=== PATIENT | female | born 1995 | race Caucasian/White ===

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

== ENCOUNTER 2017-03-07 13:57 | Emergency (ER) | payer OTHER ==
--- NOTE | 2017-03-07 14:46 | PD ---
HPI Chief Complaint cramping Date Seen: Mar 07, 2017 Time Seen: 14:41 Travel History International Travel<30 Days: No Contact w/Intl Traveler<30Days: No Known Affected Area: No History of Present Illness HPI 21-year-old primigravida at 38 weeks gestation who comes today for reported cramping. She denies any leakage of fluid, bleeding, or vaginal discharge. History Past Medical History Medical History: Denies Significant Hx Obstetric History Obstetric History Primigravida followed by Dr. Rg. She is on iron for mild anemia. Past Surgical History Narrative Surgical 4 years ago she had a cardiac procedure for closure patent ductus Family History Family History: Negative Social History Alcohol Use: No Tobacco Use: No Substance Abuse: No Allergies-Medications (Allergen,Severity, Reaction): Uncoded Allergies: CHILL POWDER (Allergy, Severe, 08/17/13) Home Meds Reported Medications Azithromycin (Zithromax) 250 Mg Tab, 1000 MG PO DIRECTED for Infection, TAB 0 Refills Take 2 tabs (500 mg) on day 1 then 1 tab daily x 4 days. 09/12/16 [none] No Conflict Check 09/26/15 Review of Systems Except as stated in HPI: all other systems reviewed are Neg Physical Exam Narrative GENERAL: Well-nourished, well-developed patient. SKIN: Warm and dry. HEAD: Normocephalic and atraumatic. EYES: No scleral icterus. No injection or drainage. ENT: No nasal drainage noted. Mucous membranes pink. Airway patent. NECK: Supple, trachea midline. No JVD. CARDIOVASCULAR: Regular rate and rhythm without murmurs, gallops, or rubs. RESPIRATORY: Breath sounds equal bilaterally. No accessory muscle use. ABDOMEN/GI: Abdomen soft, non-tender, bowel sounds present, no rebound, no guarding Gravid to [-] weeks size Fundal Height: [-] GENITOURINARY: External Genitalia: intact and normal in appearance BUS glands: [-] Cervix: [-] Dilatation: [Ft-] Effacement: [-Long] Station: [-] Presentation: [Vertex-] Membranes: [intact or ruptured] Uterine Contractions: [Rare mild-] FHT's: Category: [-1] Baseline: [-] Reactive: [-] Variability: [-] Decels: [-] EXTREMITIES: No cyanosis or edema. BACK: Nontender without obvious deformity. No CVA tenderness. NEUROLOGICAL: Awake and alert. Motor and sensory grossly within normal limits. Five out of 5 muscle strength in all muscle groups. Normal speech. Data Data Vital Signs Reviewed: Yes MDM Medical Record Reviewed: Yes Narrative Course / MDM Assessment: 38 week intrauterine not in labor Plan: Follow up as scheduled for visit Diagnosis Diagnosis: Primary Impression: 38 weeks gestation of Additional Impression: Abdominal cramping Disposition: 01 DISCHARGE HOME Condition: Good Gael Chadwick MD Mar 07, 2017 14:46
[2017-03-23] MEDS ORDERED: PREN29TA PO (12:45)
== END 2017-03-07 15:00 | disposition home or self-care (01) ==
LOC: HOBED 13:57
DX: O26.893 Other specified pregnancy related conditions, third trimester (principal); R10.9 Unspecified abdominal pain; Z3A.38 38 weeks gestation of pregnancy
CPT/HCPCS: 59025

== ENCOUNTER 2017-03-20 16:34 | Emergency (ER) | payer OTHER ==
[2017-03-20 16:52] VITALS: BP 106/65; PULSE 89
[2017-03-20 16:53] VITALS: RESP 20; TEMP 98
--- NOTE | 2017-03-20 17:18 | PD ---
HPI Chief Complaint decr FM Date Seen: Mar 20, 2017 Time Seen: 17:07 Travel History International Travel<30 Days: No Contact w/Intl Traveler<30Days: No Known Affected Area: No History of Present Illness HPI 21y/o G1 @ 39.6wks. She has PNC with Dr. Rg. She presents today for evaluation of decr FM. She states that for the past 2 days her baby has been moving but not as much. She denies LOF, VB, or ctx. Weeks Gestation: 39 Para: 0 : 1 History Past Medical History Medical History: Denies Significant Hx Obstetric History Obstetric History 1. 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 09/12/16 [none] No Conflict Check 09/26/15 Review of Systems Except as stated in HPI: all other systems reviewed are Neg Physical Exam Narrative General: well developed, well nourished, no acute distress HEENT: normocephalic atraumatic, extraocular movements intact, neck supple Abdomen: soft, gravid, nontender, nondistended Uterus: fundus term Extremities: full range of motion Skin: normal coloration, no rashes, no suspicious skin lesions noted Neurologic: cranial nerves 2-12 grossly intact, normal muscle tone, normal gait Psychiatric: normal mood and affect, appropriate FHTs: 125, +accels, no decels, moderate variability, reactive [place]: rippling, not appreciated by pt Data Data Vital Signs Reviewed: Yes Orders Orders Vital Signs (Adult) .ON ADMISSION (03/20/17 16:50) ^ Labor Status (03/20/17 16:50) ^ Non Stress Test (03/20/17 16:50) Us Ob Bpp Wo Nst (03/20/17 17:06) Group B Strep: Positive MDM Plan 21y/o G1 @ 39.6wks with decr FM. -- NST reactive -- BPP/MARCEL ordered Diagnosis Diagnosis: Primary Impression: 39 weeks gestation of Additional Impression: Decreased movement affecting management of in third trimester Abel Steward MD Mar 20, 2017 17:18
[2017-03-23] MEDS ORDERED: PREN29TA PO (12:45)
== END 2017-03-20 19:27 | disposition home or self-care (01) ==
LOC: HOBED 16:34
DX: O36.8130 Decreased fetal movements, third trimester, not applicable or unspecified (principal); Z3A.39 39 weeks gestation of pregnancy
CPT/HCPCS: 59025; 76816; 76819

== ENCOUNTER 2017-03-22 13:14 | Emergency (ER) | payer OTHER, MEDICAID ==
--- NOTE | 2017-03-22 14:03 | PD ---
HPI Chief Complaint Contractions and leaking fluid Date Seen: Mar 22, 2017 Time Seen: 13:58 Travel History International Travel<30 Days: No Contact w/Intl Traveler<30Days: No Known Affected Area: No History of Present Illness HPI Patient is 21-year-old white female at [address] Rg care presents complaining of contractions and leakage of vaginal fluid. Her amnio sure is negative today. She denies any bleeding. Heart rate tracing is reactive and no regular contractions seen Weeks Gestation: 40 Para: 0 : 1 History Social History Alcohol Use: No Tobacco Use: No Substance Abuse: No Allergies-Medications (Allergen,Severity, Reaction): Uncoded Allergies: CHILL POWDER (Allergy, Severe, 08/17/13) Home Meds Reported Medications Azithromycin (Zithromax) 250 Mg Tab, 1000 MG PO DIRECTED for Infection, TAB 0 Refills Take 2 tabs (500 mg) on day 1 then 1 tab daily x 4 days. 09/12/16 [none] No Conflict Check 09/26/15 Review of Systems General / Constitutional: No: Fever, Weight Gain, Chills, Other Eyes: No: Diploplia, Blurred Vision, Visual changes, Pain, Photophobia HENT: No: Headaches, Vertigo, Lightheadedness Cardiovascular: No: Irregular Rhythm, Chest Pain or Discomfort, Palpitations, Tachycardia, Syncope, Varicosities, Edema, Cyanosis Respiratory: No: Cough, Short of Breath, Other Gastrointestinal: No: Nausea, Vomiting, Diarrhea Genitourinary: No: Decreased Urinary Output, Oliguria Musculoskeletal: No: Limited ROM, Weakness, Cramping, Edema, Pain Skin: No Rash, No Itching, No Dryness, No Lumps, No Change in Pigmentation, No Change in Nails, No Alopecia, No Lesions Neurologic: No: Weakness, Dizziness, Syncope, Focal Abnormalities, Coordination Problem, Headache, Slurred Speech, Seizures Psychiatric: No: Depression, Suicidal Ideations, Homicidal Ideation Endocrine: No: Heat Intolerance, Cold Intolerance, Polydipsia, Polyuria, Other Physical Exam Narrative GENERAL: Well-nourished, well-developed patient. SKIN: Warm and dry. HEAD: Normocephalic and atraumatic. EYES: No scleral icterus. No injection or drainage. ENT: No nasal drainage noted. Mucous membranes pink. Airway patent. NECK: Supple, trachea midline. No JVD. CARDIOVASCULAR: Regular rate and rhythm without murmurs, gallops, or rubs. RESPIRATORY: Breath sounds equal bilaterally. No accessory muscle use. BREASTS: Bilateral exam showed no masses , no retractions, no nipple discharge. ABDOMEN/GI: Abdomen soft, non-tender, bowel sounds present, no rebound, no guarding Gravid to [40-] weeks size Fundal Height: [-38] GENITOURINARY: External Genitalia: intact and normal in appearance BUS glands: [-] Cervix: [-] Dilatation: [-1] Effacement: [-70] Station: [-2] Presentation: [-vtx] Membranes: [intact amnisure neg] Uterine Contractions: [occasional -] FHT's: Category: [1-] Baseline: [133-] Reactive: [yes-] Variability: [mod-] Decels: [none-] EXTREMITIES: No cyanosis or edema. BACK: Nontender without obvious deformity. No CVA tenderness. NEUROLOGICAL: Awake and alert. Motor and sensory grossly within normal limits. Five out of 5 muscle strength in all muscle groups. Normal speech. Data Data Labs amnisure neg MDM Interpretation(s) Patient is 21-year-old white female at 40 weeks presents complaining of contractions and leakage of fluid. Her amnio sure is negative day. No bleeding. The heart rate tracing is reactive and only an occasional contractions seen. Cervix is 1/70/-2 and vertex. Plan Plan to discharge patient home to observation she will return for worsening pain , bleeding, or any further vaginal leakage of significance, otherwise she'll follow-up with her OB provider Diagnosis Diagnosis: Primary Impression: Uterine contractions during Additional Impression: No leakage of amniotic fluid into vagina Disposition: 01 DISCHARGE HOME Condition: Stable [place] Pate II, MD Mar 22, 2017 14:03
[2017-03-23] MEDS ORDERED: PREN29TA PO ×2 (12:45)
== END 2017-03-22 14:30 | disposition home or self-care (01) ==
LOC: HOBED 13:14
DX: Z03.71 Encounter for suspected problem with amniotic cavity and membrane ruled out (principal); O62.9 Abnormality of forces of labor, unspecified; Z3A.40 40 weeks gestation of pregnancy
CPT/HCPCS: 59025; 84112

== ENCOUNTER 2017-03-23 11:00 | Inpatient (IN) | payer OTHER, MEDICAID ==
[2017-03-23] VITALS (58 sets, daily range): BP systolic 95–132; BP diastolic 52–84; PULSE 74–120; RESP 16–18; TEMP 97.8
[~2017-03-23] VITALS: Ht 167.6 cm; Wt 67.0 kg
[2017-03-23] MEDS ORDERED: MINERAL OIL 10 ML VIAL TOPICAL PRN (11:15)
[2017-03-23] MEDS ORDERED: PENICILLIN G POTASSIUM INJ 5,000,000 UNITS in SODIUM CHLORIDE 0.9% INJ 100 ML IV ONE (11:15)
[2017-03-23] MEDS ORDERED: LACTATED RINGER'S 1000 ML INJ 1,000 ML IV PRN (11:15)
[2017-03-23] MEDS ORDERED: LIDOCAINE HCL 1% 50 ML VIAL INFIL PRN (11:15)
[2017-03-23] MEDS ORDERED: OXYTOCIN 30 UNITS-500ML PREMIX 500 ML IV ONE ×2 (11:15→19:45)
[2017-03-23] MEDS ORDERED: SODIUM CHLORID 0.9% 500 ML INJ 500 ML IV PRN (11:15)
[2017-03-23] MEDS ORDERED: LIDOCAINE HCL 1% 50 ML VIAL I-DERMAL PRN (11:15)
[2017-03-23] MEDS ORDERED: LACTATED RINGER'S 1000 ML INJ 1,000 ML IV SCH (11:15)
[2017-03-23] MEDS ORDERED: CITRIC ACID-SODIUM CITRATE LIQ 30 ML UDC PO SCH (11:15)
--- NOTE | 2017-03-23 11:22 | PD ---
HPI Chief Complaint ctx Date Seen: Mar 23, 2017 Time Seen: 11:17 Travel History International Travel<30 Days: No Contact w/Intl Traveler<30Days: No Known Affected Area: No History of Present Illness HPI Pt is a 21y/o G1 @ 40.2wks. She has PNC with Dr. Rg. She presents today triage with c/o painful ctx. She was seen yesterday and was 1cm dilated. She is GBS positive. Weeks Gestation: 40 Para: 0 : 1 History Past Medical History Medical History: Denies Significant Hx Obstetric History Obstetric History 1. current Past Surgical History Narrative Surgical PDA correction Family History Family History: Negative Social History Alcohol Use: No Tobacco Use: No Substance Abuse: Yes (MJ prior to ) Allergies-Medications (Allergen,Severity, Reaction): Uncoded Allergies: CHILL POWDER (Allergy, Severe, 08/17/13) Home Meds Reported Medications Azithromycin (Zithromax) 250 Mg Tab, 1000 MG PO DIRECTED for Infection, TAB 0 Refills Take 2 tabs (500 mg) on day 1 then 1 tab daily x 4 days. 09/12/16 [none] No Conflict Check 09/26/15 Review of Systems Except as stated in HPI: all other systems reviewed are Neg Physical Exam Narrative General: well developed, well nourished, no acute distress HEENT: normocephalic atraumatic, extraocular movements intact, neck supple Abdomen: soft, gravid, nontender, nondistended Uterus: fundus term Extremities: full range of motion Skin: normal coloration, no rashes, no suspicious skin lesions noted Neurologic: cranial nerves 2-12 grossly intact, normal muscle tone, normal gait Psychiatric: normal mood and affect, appropriate FHTs: 135, +accels, no decels, moderate variability, reactive Cvx: 4-5/100/BBOW Data Data Vital Signs Reviewed: Yes Orders Orders Ob (2e) Additional Admit Info (03/23/17 11:15) Vital Signs (Adult) .ON ADMISSION (03/23/17 11:15) ^ Labor Status (03/23/17 11:15) Urinalysis - C+S If Indicated (03/23/17 11:15) ^ Non Stress Test (03/23/17 11:15) Admit To Inpatient (03/23/17 ) Vital Signs (Adult) .Per protocol (03/23/17 11:15) Heart (03/23/17 11:15) Amnioinfusion (03/23/17 11:15) Urinary Catheter Management .ONCE (03/23/17 11:15) Diet Liquid (03/23/17 Lunch) Lactated Ringer's 1000 Ml Inj (Lr 1000 M (03/23/17 11:15) Lactated Ringer's 1000 Ml Inj (Lr 1000 M (03/23/17 11:15) Sodium Chlorid 0.9% 500 Ml Inj (Ns 500 M (03/23/17 11:15) Sodium Chlor 0.9% 1000 Ml Inj (Ns 1000 M (03/23/17 11:35) Lidocaine 1% Inj (50 Ml) (Xylocaine 1% I (03/23/17 11:15) Citric Acid-Sodium Citrate Liq (Bicitra (03/23/17 11:15) Fentanyl Inj (Fentanyl Inj) (03/23/17 11:15) Fentanyl Inj (Fentanyl Inj) (03/23/17 11:15) Penicillin G Potassium Inj (Pfizerpen-G (03/23/17 11:15) Penicillin G Potassium Inj (Pfizerpen-G (03/23/17 15:15) Complete Blood Count With Diff (03/23/17 11:15) Hold Clot (03/23/17 11:15) Abo/Rh Blood Type (03/23/17 11:15) Drug Screen, Random Urine (03/23/17 11:15) Resp Oxygen Non Rebreathe Mask (03/23/17 ) ^ Epidural / Intrathecal Infus (03/23/17 11:15) Oxytocin 30 Units-500ml Premix (Pitocin (03/23/17 11:15) Lidocaine 1% Inj (50 Ml) (Xylocaine 1% I (03/23/17 11:15) Light Mineral Oil (Muri-Lube Oil) (03/23/17 11:15) Inpatient Certification (03/23/17 ) Group B Strep: Positive MDM Plan 21y/o G1 @ 40.2wks in labor -- admit to L&D -- CLD, epidural/fowler PRN -- PCN for GBS positive (delay AROM until 2nd dose) -- FHTs cat 1 Dr. Rg (optical fabrication technician) notified of pt status and agrees with plan of care. He will assume care of the pt. Courtesy orders placed. Diagnosis Diagnosis: Primary Impression: 40 weeks gestation of Additional Impressions: Uterine contractions during GBS (group B streptococcus) infection Abel Steward MD Mar 23, 2017 11:22
[2017-03-23] MEDS ORDERED: SODIUM CHLOR 0.9% 1000 ML INJ 1,000 ML IV PRN (11:35)
[2017-03-23 11:57] LABS: AUTOMATED NEUTROPHIL # 9.5 TH/MM3 (1.8-7.7); BASOPHIL % 0.3 % (0.0-2.0); EOSINOPHIL % 0.2 % (0.0-4.0); HEMATOCRIT 35.9 % (35.0-46.0); HEMO FLAGS DIFF FINAL; LYMPH % 18.3 % (9.0-44.0); LYMPHOCYTE # 2.3 TH/MM3 (1.0-4.8); MEAN CELL VOLUME 85.2 FL (80.0-100.0); MEAN CORPUSCULAR HEMOGLOBIN 28.5 PG (27.0-34.0); MEAN CORPUSCULAR HGB CONC 33.5 % (32.0-36.0); NEUT % 75.2 % (16.0-70.0); PLATELET COUNT 234 TH/MM3 (150-450); RED BLOOD COUNT 4.21 MIL/MM3 (4.00-5.30); RED CELL DISTRIBUTION WIDTH 15.1 % (11.6-17.2); WHITE BLOOD COUNT 12.6 TH/MM3 (4.0-11.0)
[2017-03-23 12:10] LABS: BACTERIA, URINE RARE /hpf; BLOOD, URINE NEG (NEG); COMMENT (UR) CULTURE INDICATED; CULTURE IF INDICATED CULTURE INDICATED; GLUCOSE,URINE NEG (NEG); KETONE, URINE NEG (NEG); MUCUS URINE FEW /lpf (OCC); NITRITE,URINE NEG (NEG); PH, URINE 7.5 (5.0-8.5); SQUAMOUS EPITHELIAL CELL URINE 6 /hpf (0-5); URINE COLOR YELLOW (YELLW/STRAW)
[2017-03-23] MEDS ORDERED: PREN29TA PO ×2 (12:45)
[2017-03-23] MEDS ORDERED: OXYTOCIN 30 UNITS-500ML PREMIX 500 ML IV SCH ×2 (13:00→19:45)
[2017-03-23] MEDS ORDERED: ePHEDrine/NS 25 MG/5 ML SYRINGE ONE (13:36)
[2017-03-23] MEDS ORDERED: fentaNYL 2MCG-BUPIV 0.125% INJ 100 ML ONE (13:36)
[2017-03-23] MEDS ORDERED: PENICILLIN G POTASSIUM INJ 2,500,000 UNITS in SODIUM CHLORIDE 0.9% INJ 100 ML IV SCH (15:15)
[2017-03-23] MEDS ORDERED: MEASLES, MUMPS, RUBELLA VACCINE 0.5 ML VIAL SQ ONE (16:00)
[2017-03-23] MEDS ORDERED: DIPHTH/TETANUS/ACEL PERTUSSIS (BOOSTER) 0.5 ML VIAL/PFS IM ONE (16:00)
[2017-03-23] MEDS ORDERED: ZOLPIDEM TARTRATE 5 MG TAB PO PRN (19:45)
[2017-03-23] MEDS ORDERED: DOCUSATE SODIUM 50 MG/SENNA 8.6 MG TAB PO PRN (19:45)
[2017-03-23] MEDS ORDERED: BENZOCAINE 20% TOPICAL SPRAY 60 ML CAN TOPICAL PRN (19:45)
[2017-03-23] MEDS ORDERED: SODIUM CHLORIDE 0.9% FLUSH 10 ML FLUSH IV FLUSH PRN (19:45)
[2017-03-23] MEDS ORDERED: ALUMINUM/MAGNESIUM/SIMETH 30 ML CUP PO PRN (19:45)
[2017-03-23] MEDS ORDERED: WITCH HAZEL 50%/GLYCERIN 12.5% 40 PAD JAR TOPICAL PRN (19:45)
[2017-03-23] MEDS ORDERED: IBUPROFEN 800 MG TAB PO PRN (19:45)
[2017-03-23] MEDS ORDERED: ONDANSETRON ODT 4 MG TAB PO PRN (19:45)
[2017-03-23] MEDS ORDERED: ACETAMINOPHEN 325 MG TAB PO PRN (19:45)
[2017-03-23] MEDS ORDERED: oxyCODONE/ACETAMINOPHEN 5 MG/325 MG TAB PO PRN (19:45)
--- NOTE | 2017-03-23 19:48 | PD.OB.DELI ---
Weeks gestation: 40 Gest age assessed date: Mar 23, 2017 Pt started active labor?: Yes Medical induction of labor?: No Artificial rupture of membrane: Yes Anesthesia: Epidural Episiotomy: None Vaginal Delivery: Normal Presentation: Occiput anterior Nuchal Cord: None Delayed cord clamping (45 sec): Yes Infant: Male Delivery date: Mar 23, 2017 Delivery time: 19:10 One Minute : 9 Five Minute : 9 Weight: 8/16 Placenta: Spontaneous delivery, Intact, 3 vessel cord Laceration: Perineal laceration, 2 deg Repair: Vicryl running Estimated blood loss: 300 Additional Information cris delivery of john. small perineal laceration and right labia minora laceration. repaired with 3-0 and 5-0 vicryl cris repair, Krishna Rg MD Mar 23, 2017 19:48
[2017-03-23] MEDS: SODIUM CHLORIDE 0.9% FLUSH 10 ML FLUSH IV FLUSH SCH (21:00)
[2017-03-23] MEDS ORDERED: fentaNYL 2MCG-BUPIV 0.125% 100 ML EPIDURAL SCH (22:15)
[2017-03-23] MEDS ORDERED: DO NOT ADMINISTER ANTICOAGULANTS PRN (22:15)
[2017-03-23] MEDS ORDERED: ePHEDrine/NS 25 MG/5 ML SYRINGE IV PUSH PRN (22:15)
[2017-03-23] MEDS ORDERED: NO SYSTEM NARCOTICS PRN (22:15)
[2017-03-24 00:05] VITALS: BP 120/69; PULSE 120; RESP 12; RESP 20; TEMP 99.6
[2017-03-24 08:00] VITALS: BP 100/65; PULSE 92; RESP 18; TEMP 98.2; O2SAT 98
[2017-03-24] MEDS ORDERED: MULTIVIT/MIN/PREN/FOL AC/IRON PRENATAL TAB PO SCH (09:00)
[2017-03-24] MEDS: SODIUM CHLORIDE 0.9% FLUSH 10 ML FLUSH IV FLUSH SCH (09:52)
--- NOTE | 2017-03-24 13:40 | HHI.OB ---
Subjective Post Day: 1 Objective Vitals/I&O Vital Signs Date Time Temp Pulse Resp B/P (MAP) Pulse Ox O2 Delivery O2 Flow Rate FiO2 03/24/17 08:00 98.2 92 18 100/65 (77) 98 03/24/17 00:05 12 120/69 (86) 03/24/17 00:05 99.6 120 20 03/23/17 21:29 118 119/66 (83) 03/23/17 21:15 101 102/54 (70) 03/23/17 21:00 105 112/65 (81) 03/23/17 20:50 18 03/23/17 20:45 106 109/60 (76) 03/23/17 20:35 16 03/23/17 20:30 102 111/65 (80) 03/23/17 20:20 16 03/23/17 20:15 111 105/62 (76) 03/23/17 20:05 18 03/23/17 20:00 111 109/66 (80) 03/23/17 19:50 18 03/23/17 19:45 16 03/23/17 19:45 109 115/62 (79) 03/23/17 19:30 109 114/52 (72) 03/23/17 19:15 113 113/69 (84) 03/23/17 19:00 120 110/82 (91) 03/23/17 18:45 110 121/62 (81) 03/23/17 18:30 109 118/62 (80) 03/23/17 18:15 18 03/23/17 18:15 105 119/69 (86) 03/23/17 18:00 104 116/72 (87) 03/23/17 17:45 106 108/56 (73) 03/23/17 17:30 116 104/59 (74) 03/23/17 17:30 97.8 03/23/17 17:24 17 03/23/17 17:15 103 100/59 (73) 03/23/17 17:01 108 103/52 (69) 03/23/17 17:00 18 03/23/17 16:45 103 113/80 (91) 03/23/17 16:30 81 95/74 (81) 03/23/17 16:15 80 107/73 (84) 03/23/17 16:01 92 113/72 (86) 1817 15:45 90 112/65 (81) 1817 15:30 85 103/77 (86) 1817 15:24 101 104/67 (79) 1817 15:20 91 18/17 15:15 94 17 15:15 94 17 15:10 86 106/54 (71) 17 15:10 84 1817 15:05 84 106/57 (73) 03/23/17 15:05 89 03/23/17 15:00 85 17 15:00 81 103/60 (74) 03/23/17 14:55 84 100/56 (71) 03/23/17 14:55 79 17 14:50 85 103/64 (77) 03/23/17 14:50 95 17 14:45 92 101/61 (74) 17 14:45 81 17 14:40 81 17 14:40 85 106/57 (73) 17 14:35 96 109/54 (72) 17 14:35 74 1817 14:30 86 99/59 (72) 17 14:30 95 18/17 14:25 92 101/61 (74) 17 14:25 89 17 14:20 95 17 14:20 94 109/61 (77) 17 14:15 97 1817 14:15 94 102/55 (71) 03/23/17 14:10 86 106/60 (75) 17 14:10 91 1817 14:05 97 109/57 (74) 17 14:05 98 1817 14:04 95 104/60 (75) 17 14:00 92 17 14:00 94 106/60 (75) 17 13:55 86 17 13:55 96 118/61 (80) 17 13:52 91 118/69 (85) 03/23/17 13:50 94 03/23/17 13:45 99 Objective Remarks GENERAL: Well-nourished, well-developed patient. CARDIOVASCULAR: Regular rate and rhythm without murmurs, gallops, or rubs. RESPIRATORY: Breath sounds equal bilaterally. No accessory muscle use. ABDOMEN/GI: Abdomen soft, non-tender. Fundus: Firm, non-tender at umbilicus. GENITOURINARY: Light to moderate bleeding. EXTREMITIES: No cyanosis or edema, non-tender, without signs of DVT. Medications and IVs Current Medications Medications (Trade) Dose Ordered Sig/[place] Route Start Time Stop Time Status Last Admin (NS Flush) 2 ml BID IV FLUSH 03/23/17 21:00 03/24/17 09:52 (NS Flush) 2 ml UNSCH PRN IV FLUSH 03/23/17 19:45 (Tylenol) 650 mg Q4H PRN PO 03/23/17 19:45 (Motrin) 800 mg Q8H PRN PO 03/23/17 19:45 (Percocet 5-325 Mg) 1 tab Q4H PRN PO 03/23/17 19:45 (Americaine 20% Top Spr) 1 spray Q4H PRN TOPICAL 03/23/17 19:45 03/24/17 00:30 (Tucks Pads) 1 applic QID PRN TOPICAL 03/23/17 19:45 03/24/17 00:30 (Emily-Colace) 2 tab Q12H PRN PO 03/23/17 19:45 (Ambien) 5 mg HS PRN PO 03/23/17 19:45 (Mag-Al Plus Susp Liq) 15 ml Q8H PRN PO 03/23/17 19:45 (Zofran Odt) 4 mg Q6H PRN PO 03/23/17 19:45 (Stuartnatal Plus 3 ) 1 tab DAILY PO 03/24/17 09:00 03/24/17 09:52 Miscellaneous Information No systemic narcotics to be given except... UNSCH PRN .XX 03/23/17 22:15 03/24/17 22:14 Miscellaneous Information DO NOT ADMINISTER ANY ANTICOAGUL... UNSCH PRN .XX 03/23/17 22:15 03/24/17 22:14 Fentanyl/ Bupivacaine HCl 100 ml @ 0 mls/hr TITRATE EPIDURAL 03/23/17 22:15 (ePHEDrine/NS 25 MG/5 ML SYR) 10 mg UNSCH PRN IV PUSH 03/23/17 22:15 03/24/17 22:14 Assessment/Plan Problem List: (1) Normal vaginal delivery ICD Codes: O80 - Encounter for full-term uncomplicated delivery Assessment and Plan pt doing well not taking anything for pain, motrin available and bonding with infant routine care Discharge Planning consider dc in 1-2 days Anne Marie Roberts Mar 24, 2017 13:40
[2017-03-24 18:00] VITALS: BP 149/76; PULSE 84
[2017-03-24 20:00] VITALS: BP 101/63; PULSE 83; RESP 18; TEMP 98.3; O2SAT 95
[2017-03-25 08:00] VITALS: BP 119/68; PULSE 81; RESP 14; TEMP 97.6
--- NOTE | 2017-03-25 10:18 | HHI.OB ---
Subjective Post Day: 2 Objective Vitals/I&O Vital Signs Date Time Temp Pulse Resp B/P (MAP) Pulse Ox O2 Delivery O2 Flow Rate FiO2 03/25/17 08:00 97.6 81 14 119/68 (85) 03/24/17 20:00 98.3 83 18 101/63 (76) 95 03/24/17 18:00 149/76 (100) 03/24/17 18:00 84 Objective Remarks GENERAL: Well-nourished, well-developed patient. CARDIOVASCULAR: Regular rate and rhythm without murmurs, gallops, or rubs. RESPIRATORY: Breath sounds equal bilaterally. No accessory muscle use. ABDOMEN/GI: Abdomen soft, non-tender. Fundus: Firm, non-tender at umbilicus. GENITOURINARY: Light to moderate bleeding. EXTREMITIES: No cyanosis or edema, non-tender, without signs of DVT. Medications and IVs Current Medications Medications (Trade) Dose Ordered Sig/[place] Route Start Time Stop Time Status Last Admin (NS Flush) 2 ml BID IV FLUSH 03/23/17 21:00 03/24/17 09:52 (NS Flush) 2 ml UNSCH PRN IV FLUSH 03/23/17 19:45 (Tylenol) 650 mg Q4H PRN PO 03/23/17 19:45 (Motrin) 800 mg Q8H PRN PO 03/23/17 19:45 (Percocet 5-325 Mg) 1 tab Q4H PRN PO 03/23/17 19:45 (Americaine 20% Top Spr) 1 spray Q4H PRN TOPICAL 03/23/17 19:45 03/24/17 00:30 (Tucks Pads) 1 applic QID PRN TOPICAL 03/23/17 19:45 03/24/17 00:30 (Emily-Colace) 2 tab Q12H PRN PO 03/23/17 19:45 (Ambien) 5 mg HS PRN PO 03/23/17 19:45 (Mag-Al Plus Susp Liq) 15 ml Q8H PRN PO 03/23/17 19:45 (Zofran Odt) 4 mg Q6H PRN PO 03/23/17 19:45 (Stuartnatal Plus 3 ) 1 tab DAILY PO 03/24/17 09:00 03/24/17 09:52 Fentanyl/ Bupivacaine HCl 100 ml @ 0 mls/hr TITRATE EPIDURAL 03/23/17 22:15 Assessment/Plan Problem List: (1) Normal vaginal delivery ICD Codes: O80 - Encounter for full-term uncomplicated delivery Assessment and Plan pt doing well not taking anything for pain, motrin available routine care Discharge Planning dc home today when baby is cleared Anne Marie Roberts Mar 25, 2017 10:18
--- NOTE | 2017-03-25 10:20 | HHI.DS ---
Admission Date Mar 23, 2017 at 11:17 Discharge Date: Mar 25, 2017 Admitting Diagnosis term labor Diagnosis: (1) Normal vaginal delivery Diagnosis: Principal ICD Codes: O80 - Encounter for full-term uncomplicated delivery Delivery Date: Mar 23, 2017 Vaginal Delivery: Normal : Male Brief History Pt is a 21y/o G1 @ 40.2wks. She has PNC with Dr. Rg. She presents today triage with c/o painful ctx. She was seen yesterday and was 1cm dilated. She is GBS positive. Hospital Course admitted for labor treated for GBS + routine care Pt Condition on Discharge: Good Discharge Disposition: Discharge Home Discharge Instructions Diet Instructions: As Tolerated, No Restrictions Additional Diet Instructions: Drink at least 8 - 16 oz bottles of water a day Activities You Can Perform: Shower Only-No Bath, Sitz Bath Activities to Avoid: Lifting/Bending, Sexual Activity Additional Activity Instruc.: No driving until off pain medications Do not lift anything heavier than your baby in an carrier Follow up Referrals: SAFETY PERSON - 2 Weeks @ [facility] Anne Marie Roberts Mar 25, 2017 10:20
== END 2017-03-25 18:28 | disposition home or self-care (01) | DRG 775 ==
LOC: HOBED 11:00 → H2EA 11:17 → H1EA 22:07
PROVIDERS: ADMIT Obstetrics & Gynecology; ATTEND Obstetrics & Gynecology
PROC: 10E0XZZ Delivery of Products of Conception, External Approach (ICD-10-PCS; principal; 2017-03-23)
PROC: 10907ZC Drainage of Amniotic Fluid, Therapeutic from Products of Conception, Via Natural or Artificial Opening (ICD-10-PCS; 2017-03-23)
PROC: 0KQM0ZZ Repair Perineum Muscle, Open Approach (ICD-10-PCS; 2017-03-23)
DX: O99.824 Streptococcus B carrier state complicating childbirth (principal); O36.8130 Decreased fetal movements, third trimester, not applicable or unspecified; O62.9 Abnormality of forces of labor, unspecified; Z37.0 Single live birth; O70.1 Second degree perineal laceration during delivery; Z3A.40 40 weeks gestation of pregnancy
CPT/HCPCS: 59025; 80307; 81001; 85025; 86900; 86901; 87086; J2540; J2590; J3010; J7120